=== PATIENT | male | born 1975 | race Hispanic/Latino ===

== ENCOUNTER 2021-08-31 14:08 | Emergency (ER) | payer OTHER ==
[2021-08-31] MEDS ORDERED: ONDANSETRON 4 MG/2 ML INJ IV ONE ×2 (14:18→15:51)
[2021-08-31] MEDS ORDERED: SODIUM CHLORIDE 0.9% 1000 ML 1,000 ML IV ONE (14:18)
[2021-08-31] MEDS ORDERED: MORPHINE 4 MG/1 ML INJ IV ONE ×2 (14:18→15:51)
--- NOTE | 2021-08-31 14:37 | Emergency Department Report ---
ED Abdominal Pain HPI - General Chief Complaint: Urogenital-Male Stated Complaint: POSS KIDNEY STONE Time Seen by Provider: 08/31/21 14:17 Source: patient, EMS Mode of arrival: Stretcher Limitations: No Limitations - History of Present Illness Initial Comments: Patient is 46-year-old male with history of hypertension, diabetes and kidney stone. [place] of sudden onset of left flank pain that radiated to his suprapubic area. Patient stated that this is similar to when he had his kidney stone. Patient described pain as sharp, 10 out of 10 radiated to the suprapubic area. Patient denied any fever or chills. He reported nausea and vomiting. No chest pain or shortness of breath. MD Complaint: abdominal pain, flank pain -: Sudden Location: L flank Radiation: suprapubic Migration to: no migration Severity: severe Severity scale (0 -10): 10 Quality: sharp - Related Data Allergies Allergy/AdvReac Type Severity Reaction Status Date / Time lisinopril Allergy Hives Verified 08/31/21 14:17 ED Review of Systems ROS: Stated complaint: POSS KIDNEY STONE Other details as noted in HPI Comment: All other systems reviewed and negative Constitutional: denies: chills, fever Respiratory: denies: cough, shortness of breath, SOB with exertion Cardiovascular: denies: chest pain, palpitations Gastrointestinal: abdominal pain, nausea, vomiting. denies: hematochezia Genitourinary: denies: dysuria Musculoskeletal: back pain Neurological: denies: headache, weakness, numbness, paresthesias, confusion ED Past Medical Hx - Past Medical History Previous Medical History?: Yes Hx Hypertension: Yes Hx Diabetes: Yes ED Physical Exam - General Limitations: No Limitations General appearance: alert, in distress - Head Head exam: Present: atraumatic, normocephalic, normal inspection - Eye Eye exam: Present: normal appearance, PERRL - ENT ENT exam: Present: normal exam, normal orophraynx, mucous membranes moist - Neck Neck exam: Present: normal inspection. Absent: tenderness, meningismus - Respiratory Respiratory exam: Present: normal lung sounds bilaterally - Cardiovascular Cardiovascular Exam: Present: regular rate, normal rhythm, normal heart sounds - GI/Abdominal GI/Abdominal exam: Present: soft, normal bowel sounds. Absent: distended, tenderness, guarding, rebound, rigid, organomegaly, mass, bruit, pulsatile mass, hernia - Extremities Exam Extremities exam: Present: normal inspection, full ROM, normal capillary refill. Absent: tenderness - Back Exam Back exam: Present: normal inspection, full ROM. Absent: CVA tenderness (R), CVA tenderness (L) - Neurological Exam Neurological exam: Present: alert, oriented X3, CN II-XII intact, normal gait, reflexes normal. Absent: motor sensory deficit - Psychiatric Psychiatric exam: Present: normal mood - Skin Skin exam: Present: warm, intact, normal color ED Course Vital Signs 08/31/21 08/31/21 08/31/21 14:17 14:27 14:30 Temperature 98.8 F Pulse Rate 88 73 Respiratory 20 9 L Rate Blood Pressure 148/80 Blood Pressure 146/84 [Right] O2 Sat by Pulse 98 92 94 Oximetry 08/31/21 08/31/21 14:46 14:49 Temperature Pulse Rate 71 Respiratory 15 Rate Blood Pressure 148/80 Blood Pressure [Right] O2 Sat by Pulse 99 99 Oximetry ED Medical Decision Making - Lab Data Result diagrams: 08/31/21 14:35 08/31/21 14:35 - Radiology Data Radiology results: report reviewed - Medical Decision Making Patient is 46-year-old male with history of hypertension, diabetes and kidney stone. [place] evaluation of sudden onset of left flank pain that radiated to his suprapubic area. Patient stated that this is similar to when he had his kidney stone. Patient described pain as sharp, 10 out of 10 radiated to the suprapubic area. Patient denied any fever or chills. He reported nausea and vomiting. No chest pain or shortness of breath. Patient received morphine and Zofran. Patient already received Toradol by EMS. Patient stated that he is feeling much better. Patient rated his pain as 2 out of 10. Labs reviewed and is unremarkable. CT abdomen and pelvis showed a left obstructing ureteric stone with hydronephrosis. Patient stated that he has a urologist that he follow-up with him in [place] and he would like to follow-up with him in the next 2 to 3 days. Patient advised to return to the ER or go to another ER if his symptoms get worse. Critical care attestation.: If time is entered above; I have spent that time in minutes in the direct care of this critically ill patient, excluding procedure time. ED Disposition Clinical Impression: Acute abdominal pain, Left ureteral calculus Disposition: HOME / SELF CARE / HOMELESS Is pt being admited?: No Condition: Stable Instructions: Flank Pain, Adult, [id number] Referrals: PRIMARY CARE,MD [Primary Care Provider] - 3-5 Days
[2021-08-31 15:02] LABS: Basophils # (Auto) 0.1 K/mm3 (0.0-0.1); Basophils % (Auto) 1.1 % (0.0-1.8); Eosinophils # (Auto) 0.1 K/mm3 (0.0-0.4); Eosinophils % (Auto) 0.6 % (0.0-4.3); Hematocrit 45.2 % (35.5-45.6); Hemoglobin 14.8 gm/dl (11.8-15.2); Lymphocytes # (Auto) 1.1 K/mm3 (1.2-5.4); Lymphocytes % (Auto) 9.7 % (13.4-35.0); Mean Corpuscular HGB Conc 33 % (32-34); Mean Corpuscular Volume 87 fl (84-94); Monocytes # (Auto) 0.7 K/mm3 (0.0-0.8); Monocytes % (Auto) 5.9 % (0.0-7.3); Platelet Count 338 K/mm3 (140-440); Red Blood Count 5.22 M/mm3 (3.65-5.03); Red Cell Distribution Width 13.8 % (13.2-15.2)
[2021-08-31 15:13] LABS: Alanine Aminotransferase 47 units/L (7-56); Albumin 4.3 g/dL (3.9-5); BUN/Creatinine Ratio 11; Blood Urea Nitrogen 12 mg/dL (9-20); Calcium 9.7 mg/dL (8.4-10.2); Hemolysis Index 6
[2021-08-31 15:17] LABS: Bilirubin,Direct < 0.2 mg/dL (0-0.2)
[2021-08-31 15:30] LABS: Bilirubin,Urine NEG (Negative); Blood,Urine LG (Negative); Color,Urine Yellow (Yellow); Mucus,Urine 1+ /HPF
[2021-08-31 15:32] LABS: RBC,Urine > 182.0 /HPF (0.0-6.0)
--- NOTE | 2021-08-31 15:39 | Cat Scan Report ---
CT ABDOMEN AND PELVIS WITHOUT CONTRAST HISTORY: Abdominal Pain. COMPARISON: None. TECHNIQUE: CT images of the abdomen and pelvis were obtained without administration of intravenous co ntrast. All CT scans at this location are performed using CT dose reduction for ALARA by means of au tomated exposure control. FINDINGS: Lungs/bones: Lung bases are clear Abdomen/pelvis: There is diffuse fatty infiltration of the liver and the liver is enlarged. Adrenal glands, spleen, gallbladder and upper GI tract appear normal. Small calcification near the pancreatic head. No definite pancreatic ductal dilatation. Bilateral nonobstructing renal stones. Large is calcification within left kidney measures [address] calcification in the right kidney measures 3 mm. There is a mid to proximal left ureteral stone me asuring 5-6 mm with mild left hydronephrosis. Degenerative changes seen throughout spine IMPRESSION: 1. Nonobstructing bilateral renal stones. There is a 5 to 6 mm obstructing left proximal mid renal st one left hydronephrosis 2. Hepatomegaly with hepatic steatosis. Signer Name: Keny Echeverria MD Signed: 08/31/2021 3:34 PM Workstation Name: [id number]
[2021-08-31 17:10] VITALS: BP 140/80
== END 2021-08-31 17:22 | disposition home or self-care (01) ==
LOC: ED 14:08
DX: N20.1 Calculus of ureter (principal); R10.9 Unspecified abdominal pain; I10 Essential (primary) hypertension; E11.8 Type 2 diabetes mellitus with unspecified complications; Z88.8 Allergy status to other drugs, medicaments and biological substances
CPT/HCPCS: 36415; 74176; 80048; 80076; 81001; 83690; 85025; 87086; 96361; 96374; 96375; 96376; 99284; J2270; J2405; J7030